=== PATIENT | female | born 1965 | race Caucasian/White ===

== ENCOUNTER 2025-02-06 10:42 | Emergency (ER) | payer OTHER, SELFPAY ==
[2025-02-06 10:44] VITALS: BP 160/103
--- NOTE | 2025-02-06 12:03 | ED.GENMED ---
History of Present Illness
General
Chief Complaint: Headache
Time Seen by Provider: 02/06/25 11:33
History of Present Illness
History of Present Illness:
60-year-old female presents to the emergency department for an evaluation of intractable left-sided headache for the past week. She notes that she was having right-sided headache prior to this, underwent a massage that did improve her symptoms.
The day after symptoms improved she states she had a forceful fit of coughing that triggered immediate severe head discomfort as well as left-sided neck discomfort. She also reports left facial paresthesia with this. No current chest pain,
shortness of breath, extremity weakness, fever, or chills. Is been taking ibuprofen and Tylenol without much relief. Denies any blurry or double vision, denies any vision loss.
Review of Systems
Review of Systems
Allergies reviewed?: Yes
All Other Systems: ROS reviewed and negative except as documented in HPI and ROS
Phy Exam
Physical Exam
Physical Exam:
GEN: Well appearing, NAD, WDWN
HEENT: Oral mucosa moist, no scleral icterus, no nasal congestion, no temporal artery tenderness bilaterally
Cardiac: Regular rate and rhythm
Lung: No respiratory distress, no tachypnea
MSK: No gross deformity or injuries
Skin: Good color, no pallor or jaundice, no rashes
Neuro: AO x3; CN II-XII grossly intact. BUE strength 5/5 in all [place], sensation intact and symmetric. BLE strength 5/5 in all [place], sensation intact and symmetric
Psych: Calm, cooperative
Course
Orders/Labs/Results
Orders:
Orders
02/06/25 12:01
CT Head & Neck Angio W/wo IV Urgent
Comment:
Reason For Exam: headache, facial paresthesia
02/06/25 12:02
Ketorolac [Toradol] 15 mg IV NOW STA
Magnesium Sulfate 2 Gram/50 ml [Magnesium Sulfate] 2 gram in 50 ml IV NOW
Metoclopramide [Reglan] 10 mg IV NOW STA
02/06/25 12:10
Complete Blood Count/With Diff Urgent
Comprehensive Metabolic Panel Urgent
Abnormal Lab Results
02/06/25
12:10
Lymphocytes % 18.4 L %
(20.5-51.1)
Sodium 134 L mmol/L
(135-145)
Glucose 102 H mg/dl
(70-99)
02/06/25 12:10
02/06/25 12:10
Vital Signs
Initial and Last Documented VS:
Initial Vital Signs
Temp Pulse Resp BP Pulse Ox
98.0 F 92 19 160/103 98
02/06/25 10:44 02/06/25 10:44 02/06/25 10:44 02/06/25 10:44 02/06/25 10:44
Last Documented Vital Signs
Temp Pulse Resp BP Pulse Ox
98.0 F 75 14 139/95 99
02/06/25 10:44 02/06/25 15:04 02/06/25 15:04 02/06/25 15:04 02/06/25 15:04
MDM/Problems Addressed
MDM/Problems Addressed:
Given the abrupt worsening after coughing fits concern was for a vertebral or carotid artery dissection thus CT angiogram was obtained however this was reassuring. Patient's headache did improve with IV treatment in the ED. Her facial paresthesias
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 Doubt encephalitis or meningitis given the duration of symptoms and lack of fever or neck rigidity, imaging here as well as outpatient CT were
negative for brain mass.
*Pulse Oximetry
SaO2: 98
Oxygen Mode of Delivery: Room air
Patient hypoxic: no
*Critical Care Note
Total Time (30-74mins, 75-104mins- exclusive of procedures): Not Applicable
ED Attending Note
-
Portions of this chart may have been created with voice recognition software.� Occasional wrong word or��sound alike� substitutions may have occurred due to the inherent limitations of voice recognition software.
Discharge Plan
Departure
Patient Disposition: Home (Routine Discharge)
Date of Disposition: 02/06/25
Time of Disposition: 14:33
Patient with high blood pressure during this ER visit?: No
Discharge Problem:
Headache
Instructions: Headache, Adult (DC)
Prescriptions:
New
[id number] 50-325-40 mg capsule
1 cap PO Q6H PRN (Reason: Pain) Qty: 10 0RF
Referrals:
Mandy Lundberg PA [Family Provider]
Interventions
Interventions:
*Risk Screen - Suicide Last Done: 02/06/25 10:44
*General Assessment Last Done: 02/06/25 10:44
*Neglect/Abuse Screening Last Done: 02/06/25 10:44
*ED- Fall Risk Assessment Last Done: 02/06/25 11:03
*Nursing Disposition Last Done: 02/06/25 15:05
ED- Neurological Assessment Last Done: 02/06/25 11:03
Discharge Date and Time
Discharge Date/Time: 02/06/25 15:06
Print Language: PERSIAN
[2025-02-06] MEDS: MAGNESIUM SULFATE 50 IV (12:15)
[2025-02-06] MEDS: TORADOL 15 MG IV (12:15)
[2025-02-06] MEDS: REGLAN 10 MG IV (12:16)
[2025-02-06 12:30] LABS: Hematocrit 41.4 % (37.0-47.0); Hemoglobin 13.7 g/dL (12.0-16.0); Mean Corp Hgb Conc. 33.1 g/dL (33.0-37.0); Mean Corpuscular Volume 88.7 fL (81.0-99.0); Nucleated Red Blood Cells % 0 %; Platelet Count 182 10^3/uL (130-400); Red Cell Dist. Width 12.1 % (11.5-14.5)
[2025-02-06 12:46] LABS: ALT (SGPT) 16 U/L (0-35); AST (SGOT) 18 U/L (14-36); Albumin 4.2 g/dl (3.5-5.0); Alkaline Phosphatase 77 U/L (38-126); Blood Urea Nitrogen 10 mg/dl (7-17); Calcium 9.2 mg/dl (8.4-10.2); Carbon Dioxide 29 mmol/L (22-30); Chloride 99 mmol/L (98-107); Glucose 102 mg/dl (70-99); Potassium 3.7 mmol/L (3.5-5.1); Sodium 134 mmol/L (135-145); Total Protein 6.6 g/dl (6.3-8.2); eGFR > 60.00
[2025-02-06 13:05] VITALS: BP 140/91
[2025-02-06 15:04] VITALS: BP 139/95
== END 2025-02-06 15:06 | disposition home or self-care (01) ==
LOC: EMR 10:42
PROVIDERS: Physician Assistant; EMERGENCY PHYSICIAN Student in an Organized Health Care Education/Training Program; FAMILY PHYSICIAN Physician Assistant
DX: R51.9 Headache, unspecified (principal); M54.2 Cervicalgia; R20.2 Paresthesia of skin
CPT/HCPCS: 99284; 96365; 96375; 70496; 70498; 80053; 85025; Q9967